=== PATIENT | female | born 1985 | race African-American/Black ===

== ENCOUNTER 2016-09-17 13:36 | Emergency (ER) | payer MEDICAID ==
[2016-09-17 13:43] VITALS: RESP 16; O2SAT 97
--- NOTE | 2016-09-17 15:10 | EDPHY ---
H & P Stated Complaint: DOMINGO for 30 mins- had vision issues prior to headache. Time Seen by Provider: 09/17/16 15:02 - Personal History LMP (Females 10-55): 15-21 Days Ago Current Tetanus/Diphtheria Vaccine: Yes Tetanus Vaccine Date: 05/23/2015 - Medical/Surgical History Hx Asthma: No Hx Chronic Respiratory Disease: No Hx Diabetes: No Hx Cardiac Disease: No Hx Renal Disease: No Hx Cirrhosis: No Hx Alcoholism: No Hx HIV/AIDS: No Hx Splenectomy or Spleen Trauma: No Other PMH: PMH:none. PSH:none - Social History Smoking Status: Never smoked Constitutional: Initial Vital Signs Temperature (C) 36.4 C 09/17/16 13:39 Heart Rate 78 09/17/16 13:39 Respiratory Rate 16 09/17/16 13:39 Blood Pressure 108/61 09/17/16 13:39 O2 Sat (%) 97 09/17/16 13:39 O2 Delivery Mode Room Air Allergies/Adverse Reactions: No Known Allergies Allergy (Verified 09/17/16 13:43) Home Medications: Medication Instructions Recorded NK [No Known Home Meds] 09/17/16 Medical Decision Making ED Course/Re-evaluation: CHIEF COMPLAINT: Headache HISTORY OF PRESENT ILLNESS: This patient is a 31 year old female who presents to the Emergency Department complaining of an acute headache beginning this morning. When she awoke, she experienced acute vision loss in her left eye lasting for approximately 30 minutes. When her vision returned to normal, she experienced a moderate headache localized to the right side of her forehead and persisting to the present. Her pain has improved slightly with Advil. She reports a similar headache back in 2003; she was seen by a physician at that time but was unsure if she was diagnosed with migraines at that time. Denies any pertinent medical history. REVIEW OF SYSTEMS: A 10 point review of systems was performed and is negative with the exception of the elements mentioned in the history of present illness. PHYSICAL EXAM: General Appearance: Alert, well hydrated, appropriate, and non-toxic appearing. Head: Atraumatic without scalp tenderness or obvious injury Eyes: Pupils equal, round, reactive to light and accommodation, EOMI, no trauma , no injection. Ears: Clear bilaterally, no perforation, normal landmarks Nose: Atraumatic, no rhinorrhea, clear. Throat: There is no erythema or exudates, no lesions, normal tonsils, mucus membranes moist. Neck: Supple, 2+ carotid upstroke, non-tender, no lymphadenopathy. Respiratory: No retractions, no distress, no wheezes, and no accessory muscle use. Lungs are clear to auscultation bilaterally. Cardiovascular: Regular rate and rhythm, no murmurs, rubs, or gallops. Bilateral carotid, radial, dorsalis pedis, and posterior tibial pulses intact. Good capillary refill all extremities. Gastrointestinal: Abdomen is soft, non-tender, non-distended, no masses, no rebound, no guarding, no peritoneal signs. Musculoskeletal: Normal active ROM of all extremities, atraumatic. Neurological: Alert, appropriate, and interactive. The patient has normal DTRs and non-focal cranial nerves, motor, sensory, and cerebellar exam. Skin: No rashes, good turgor, no nodules on palpation. PAST MEDICAL HISTORY: Denies. PAST SURGICAL HISTORY: Denies. SOCIAL HISTORY: From [place] originally, has lived in the for 16 years. DIFFERENTIAL DIAGNOSIS: The differential diagnosis for the patient's headache included but was not limited to subarachnoid hemorrhage, migraine headache, tension headache and infectious causes such as meningitis, pharyngitis and sinusitis. MEDICAL DECISION MAKING: This 31 year old female presents to the Emergency Department with an acute headache preceded by visual aura beginning this morning. She does have a history of headaches and reports a similar episode previously but is unsure if she was diagnosed with migraine headaches at that time. Her exam is benign. I considered etiologies relating to the patient's country of origin but given that she has lived in the for 16 years, my suspicion is low for any of these. Will proceed to treat using migraine protocol and reevaluate following administration of medications. IV established. 1L IV NS and 10mg IV Reglan administered. 4:00 p.m.: This patient's headache is almost completely gone. I am going to give her 30 mg of Ketoralac and 10 mg of Decadron. She has a completely normal neurologic exam still. 4:25 p.m.: The patient's headache has resolved entirely. She is eager to go home. She will be discharged home in good condition with instructions to follow- up with neurology for further evaluation of migraine headaches. She understands customary return precautions which I discussed with her prior to discharge. - Data Points Medications Given: Discontinued Medications Dexamethasone (Decadron Injection) 10 mg IVP EDNOW ONE Stop: 09/17/16 16:02 Last Admin: 09/17/16 16:10 Dose: 10 mg Ketorolac Tromethamine (Toradol) 30 mg IVP EDNOW ONE Stop: 09/17/16 16:02 Last Admin: 09/17/16 16:10 Dose: 30 mg Metoclopramide HCl (Reglan Injection) 10 mg IVP EDNOW ONE Stop: 09/17/16 15:21 Last Admin: 09/17/16 15:30 Dose: 10 mg Departure - Departure Disposition: Home, Routine, Self-Care Clinical Impression: Migraine Qualifiers: Migraine type: with aura Status migrainosus presence: without status migrainosus Intractability: not intractable Qualified Code(s): G43.109 - Migraine with aura, not intractable, without status migrainosus Condition: Good Instructions: Migraine Headache (ED) Additional Instructions: 1. Alternate Tylenol and Ibuprofen every 6 hours as needed to treat your headache. 2. Follow-up with a neurologist if your headaches continue. We have referred you to Dr. Hal Rabago. 3. Return to the Emergency Department if you experience worsening headache, changes to your vision, difficulty speaking, weakness, numbness, or other serious concerns. Referrals: Hal Rabago DO [Doctor of Osteopathy] - As per Instructions
[2016-09-17] MEDS ORDERED: METOCLOPRAMIDE 10 MG/2 ML VIAL IVP ONE (15:20)
[2016-09-17] MEDS ORDERED: DEXAMETHASONE 10 MG/ML VIAL IVP ONE (16:01)
[2016-09-17] MEDS ORDERED: KETOROLAC 30 MG/1 ML SDV IVP ONE (16:01)
[2016-09-17 16:42] VITALS: BP 98/67; PULSE 69; TEMP 98.2
== END 2016-09-17 16:41 | disposition home or self-care (01) ==
DX: G43.109 Migraine with aura, not intractable, without status migrainosus (principal)
CPT/HCPCS: 96374; J1885; J2765

== ENCOUNTER 2017-07-09 12:37 | Emergency (ER) | payer MEDICAID ==
[2017-07-09 12:52] VITALS: RESP 18
[2017-07-09] MEDS ORDERED: ACETAMINOPHEN 500 MG TAB PO ONE (13:18)
--- NOTE | 2017-07-09 13:58 | EDPHY ---
H & P Stated Complaint: cough 3 days Time Seen by Provider: 07/09/17 13:06 HPI/ROS: Chief complaint: Cold symptoms History of present illness: This is a 32-year-old female who presents to the emergency department for cold symptoms. She has been sick for the last 3-4 days. She reports fevers, nasal congestion, nonproductive cough, generalized malaise. She denies respiratory distress or rash. Other family member sick with similar symptoms. Review of systems: A 10 point review of systems was obtained and other than described above was negative - Personal History LMP (Females 10-55): 8-14 Days Ago Tetanus Vaccine Date: 05/23/2015 - Medical/Surgical History Hx Asthma: No Hx Chronic Respiratory Disease: No Hx Diabetes: No Hx Cardiac Disease: No Hx Renal Disease: No Hx Cirrhosis: No Hx Alcoholism: No Hx HIV/AIDS: No Hx Splenectomy or Spleen Trauma: No Other PMH: PMH:none. PSH:none - Social History Smoking Status: Never smoked - Physical Exam Exam: General Appearance: Alert, nontoxic. Eyes: Pupils equal and round no pallor or injection. ENT, Mouth: Tympanic membranes, external auditory canals, external ears and surrounding soft tissue including over the mastoids are unremarkable. Nasopharynx is injected. There is clear rhinorrhea. Oropharynx is injected. There is no edema. There is no exudate. There is no asymmetry. The uvula is midline. No elevation of the tongue. There is no hoarseness, no drooling, no trismus, no stridor. Respiratory: There are no retractions, lungs are clear to auscultation. Cardiovascular: Regular rate and rhythm. Gastrointestinal: Abdomen is soft and non tender, no masses, bowel sounds normal. Neurological: Alert and oriented x4. Strength and sensation intact and symmetrical. No meningismus. Skin: Warm and dry, no rashes. Musculoskeletal: Neck is supple non tender. Extremities are symmetrical, full range of motion. Psychiatric: Patient is oriented X 3, there is no agitation. Constitutional: Initial Vital Signs Temperature (C) 38.5 C H 07/09/17 12:40 Heart Rate 103 H 07/09/17 12:40 Respiratory Rate 18 07/09/17 12:40 Blood Pressure 103/57 L 07/09/17 12:40 O2 Sat (%) 97 07/09/17 12:40 O2 Delivery Mode Room Air Allergies/Adverse Reactions: No Known Allergies Allergy (Verified 09/17/16 13:43) Home Medications: Medication Instructions Recorded NK [No Known Home Meds] 09/17/16 Medical Decision Making ED Course/Re-evaluation: Patient seen under the supervision of my secondary supervising physician Dr. Emil Jauregui. Patient presents to the emergency department for cold symptoms. She is nontoxic. Afebrile and vital signs stable. She has a rather benign physical exam. I believe this is likely a viral syndrome. Antibiotics not indicated at this time. Patient will be discharged home. Symptomatic care is discussed. She is to follow up with a primary care doctor for recheck. Return precautions are given. Differential Diagnosis: Included but not limited to influenza, pneumonia, bronchitis, URI - Data Points Medications Given: Discontinued Medications Acetaminophen (Tylenol) 1,000 mg PO EDNOW ONE Stop: 07/09/17 13:19 Last Admin: 07/09/17 13:23 Dose: 1,000 mg Departure - Departure Disposition: Home, Routine, Self-Care Clinical Impression: Viral syndrome Condition: Good Instructions: Viral Syndrome (ED) Additional Instructions: Follow-up with a primary care doctor this week for a recheck Drink plenty of fluids to stay hydrated and get plenty of rest Use [id number] ibuprofen or Tylenol as directed as needed for fever and pain If symptoms worsen or new symptoms develop return to the emergency room for recheck Referrals: Jesenia Almonte [Primary Care Provider] - As per Instructions
[2017-07-09 14:44] VITALS: BP 93/63; PULSE 97; TEMP 100.4; O2SAT 98
== END 2017-07-09 14:43 | disposition home or self-care (01) ==
DX: B34.9 Viral infection, unspecified (principal)

== ENCOUNTER 2017-09-02 23:31 | Emergency (ER) | payer MEDICAID ==
[2017-09-02 23:38] VITALS: O2SAT 96
--- NOTE | 2017-09-03 00:53 | EDPHY ---
H & P Stated Complaint: left ear pain Time Seen by Provider: 09/02/17 23:34 HPI/ROS: Chief Complaint: Ear pain HPI: 32 year old woman complaining of left ear pain. Patient has been dealing with pain for the last several weeks. She was started on Polysporin otic. She has not been having any discharge. She is not better drops in today is complaining of pain at this time. No discharge. Some decreasing hearing loss. No fevers or chills. ROS: 10 point Review of Systems is negative except as noted in the HPI. PMH: Denies Social History: No smoking, no alcohol, no recreational drug use Family History: non-contributory Physical Exam: Gen: Awake, Alert, No Distress HEENT: Ears: Left ear TM is normal. There is no material in the canal. No erythema or bulging. Some mild sclerotic changes of the tympanic membrane. Nose: no rhinorrhea Eyes: PERRLA, EOMI Mouth: Moist mucosa Neck: Supple, no JVD Chest: nontender, lungs clear to auscultation Heart: S1, S2 normal, no murmur Abd: Soft, non-tender, no guarding Back: no CVA tenderness, no midline tenderness Ext: no edema, non-tender Skin: no rash Neuro: CN II-XII intact, Sensation grossly intact, Strength 5/5 in bilateral upper and lower extremities - Personal History LMP (Females 10-55): 15-21 Days Ago Current Tetanus/Diphtheria Vaccine: Yes Current Tetanus Diphtheria and Acellular Pertussis (TDAP): Yes Tetanus Vaccine Date: 05/23/2015 - Medical/Surgical History Hx Asthma: No Hx Chronic Respiratory Disease: No Hx Diabetes: No Hx Cardiac Disease: No Hx Renal Disease: No Hx Cirrhosis: No Hx Alcoholism: No Hx HIV/AIDS: No Hx Splenectomy or Spleen Trauma: No Other PMH: PMH:none. PSH:none - Social History Smoking Status: Never smoked Constitutional: Initial Vital Signs Temperature (C) 37 C 09/02/17 23:34 Heart Rate 77 09/02/17 23:34 Respiratory Rate 16 09/02/17 23:34 Blood Pressure 104/67 09/02/17 23:34 O2 Sat (%) 96 09/02/17 23:34 O2 Delivery Mode Room Air Allergies/Adverse Reactions: No Known Allergies Allergy (Verified 09/17/16 13:43) Home Medications: Medication Instructions Recorded NK [No Known Home Meds] 09/17/16 Medical Decision Making ED Course/Re-evaluation: Patient has no obvious otitis media or externa. I have recommended over-the- counter pain medications. Follow up with her physician as an outpatient. Departure - Departure Disposition: Home, Routine, Self-Care Clinical Impression: Ear pain Condition: Good Instructions: Earache (ED) Additional Instructions: Alternate acetaminophen (1000 mg) with ibuprofen (400 mg) every 4 hours as needed for pain. Follow up with her physician in 3-4 days if symptoms are not improving. Referrals: Jesenia Almonte [Primary Care Provider] - As per Instructions
[2017-09-03 01:05] VITALS: BP 110/77; PULSE 64; RESP 18; TEMP 98.8
== END 2017-09-03 01:04 | disposition home or self-care (01) ==
DX: H92.02 Otalgia, left ear (principal)

== ENCOUNTER 2017-11-08 15:20 | Emergency (ER) | payer MEDICAID ==
[2017-11-08 15:40] VITALS: BP 123/61
--- NOTE | 2017-11-08 16:17 | EDPHY ---
H & P Stated Complaint: EAR PAIN, SORE THROAT Time Seen by Provider: 11/08/17 16:16 HPI/ROS: HPI: This is a 32-year-old female who presents with Chief Complaint: Ear pain going into throat Location: Bilateral ear Quality: Plugging Duration: 7-10 days Signs and Symptoms: no fever, no nausea, no vomiting, no diarrhea, no urinary symptoms, no chest pain, no shortness of breath, no wheezing, no cough, no sore throat, no neck stiffness, no joint pain, no swollen glands, no ear pain, no rash Timing: Daily Severity: [id number] Context: Patient presents with complaints of bilateral ear fullness and plugging sensation radiates down into her lateral neck for the last 7-10 days. She reports that she was diagnosed with seasonal allergies as well as a sinus infection 3 days ago at the [facility]. She has not been using the nasal spray that they gave for. She took 1 dose of Augmentin and it made her nauseous and jittery so she stopped using it. She complains of continued sinus pressure with green nasal drainage and congestion. LMP 1-7 days ago Modifying Factors: See above Comment: ROS: see HPI Constitutional: + fever, no chills, no weight loss Eyes: No blurred vision Respiratory: No shortness of breath, no cough Cardiovascular: No chest pain, no palpitations Gastrointestinal: No nausea, no vomiting, no diarrhea, no hematemesis, no blood in stool Genitourinary: No dysuria, no blood in urine Extremities: No myalgias, no edema Neurologic: No weakness, no numbness Skin: No rashes, no petechiae Hematologic: No bruising, no bleeding MEDICAL/SURGICAL/SOCIAL HISTORY: Medical history: Seasonal allergies Surgical history: Denies Social history: Family history noncontributory. CONSTITUTIONAL: Extremely well-appearing adult black female, awake and alert, no obvious distress HEENT: Atraumatic and normocephalic, PERRL, EOMI. Nares patent; no rhinorrhea; no nasal mucosal edema. Tympanic membranes clear. Oropharynx clear, no exudate and moist pink mucosa. Reproducible frontal and maxillary sinus tenderness. Airway patent. No lymphadenopathy. No meningismus. Cardiovascular: Normal S1/S2, regular rate, regular rhythm, without murmur rub or gallop. PULMONARY/CHEST: Symmetrical and nontender. Clear to auscultation bilaterally. Good air movement. No accessory muscle usage. ABDOMEN: Soft, nondistended, nontender, no rebound, no guarding, no peritoneal signs, no masses or organomegaly. No CVAT. EXTREMITIES: 2/2 pulses, strength 5/5, no deformities, no clubbing, no cyanosis or edema. NEUROLOGICAL: no focal neuro deficits. GCS 15. SKIN: Warm and dry, no erythema. no rash. Good capillary refill. Source: Patient Exam Limitations: No limitations - Personal History LMP (Females 10-55): 1-7 Days Ago Current Tetanus/Diphtheria Vaccine: Yes Current Tetanus Diphtheria and Acellular Pertussis (TDAP): Yes Tetanus Vaccine Date: 05/23/2015 - Medical/Surgical History Hx Asthma: No Hx Chronic Respiratory Disease: No Hx Diabetes: No Hx Cardiac Disease: No Hx Renal Disease: No Hx Cirrhosis: No Hx Alcoholism: No Hx HIV/AIDS: No Hx Splenectomy or Spleen Trauma: No Other PMH: PMH:none. PSH:none - Social History Smoking Status: Never smoked Constitutional: Initial Vital Signs Temperature (C) 37.8 C 11/08/17 15:36 Heart Rate 90 11/08/17 15:36 Respiratory Rate 15 11/08/17 15:36 Blood Pressure 123/61 H 11/08/17 15:36 O2 Sat (%) 97 11/08/17 15:36 O2 Delivery Mode Room Air Allergies/Adverse Reactions: No Known Allergies Allergy (Verified 09/17/16 13:43) Home Medications: Medication Instructions Recorded Doxycycline Hyclate 100 mg PO BID #14 tab 11/08/17 Loratadine [Claritin 10 mg] 10 mg PO DAILY #14 tablet 11/08/17 Medical Decision Making ED Course/Re-evaluation: Vital signs reviewed upon arrival in stable. No signs of otitis media/meningitis/sepsis Advised to start [id number] antihistamines and prescription given for same. Stopped Augmentin and started doxycycline. Advised to continue nasal steroid spray. This patient was seen under the supervision of my secondary supervising physician. I evaluated care for this patient independently. Differential Diagnosis: Differential diagnosis includes but is not limited to allergic rhinitis, bacterial sinusitis, upper respiratory infection, eustachian tube dysfunction, otitis media. Departure - Departure Disposition: Home, Routine, Self-Care Clinical Impression: Sinusitis nasal Qualifiers: Sinusitis location: maxillary Chronicity: acute Recurrence: non-recurrent Qualified Code(s): J01.00 - Acute maxillary sinusitis, unspecified Eustachian tube dysfunction Qualifiers: Laterality: bilateral Qualified Code(s): H69.83 - Other specified disorders of Eustachian tube, bilateral Condition: Good Instructions: Sinusitis (ED) Additional Instructions: Stop taking Augmentin. Start taking doxycycline 100 mg twice daily x7 days for her sinus infection. Continue to use your nasal spray daily. Take daily as needed for seasonal allergies. Take Tylenol 650 mg every 4 hr and/or ibuprofen 600 mg every 8 hr as needed for pain, headache. Referrals: Jesenia Almonte [Primary Care Provider] - 5-7 days, if not improved Prescriptions: Doxycycline Hyclate 100 mg PO BID #14 tab Loratadine [Claritin 10 mg] 10 mg PO DAILY #14 tablet
== END 2017-11-08 16:30 | disposition home or self-care (01) ==
DX: J01.00 Acute maxillary sinusitis, unspecified (principal); H69.83 Other specified disorders of Eustachian tube, bilateral

== ENCOUNTER 2018-01-24 10:18 | Emergency (ER) | payer MEDICAID, OTHER ==
--- NOTE | 2018-01-24 10:44 | EDPHY ---
General Time Seen by Provider: 01/24/18 10:36 Narrative: CHIEF COMPLAINT: "Something stuck in my throat" HISTORY OF PRESENT ILLNESS: Patient presents with complaints of "there something stuck in my throat." She states that she felt like something is been in her throat for 5 days. She states that she can feel it when she reaches back there. She has no pain. No difficulty breathing or swallowing. She has been eating and drinking with no difficulty. No injury. No headache, neck pain, fever or painful opening or closing the mouth. She has seen her primary care physician yesterday who prescribed her antacid and loratadine with no test performed. No other associated complaints or modifying factors. REVIEW OF SYSTEMS: Ten systems reviewed and are negative unless otherwise noted in the HPI PCP: [facility] SPECIALISTS: None PAST MEDICAL HISTORY: Denies any medical history PAST SURGICAL HISTORY: Denies surgical history SOCIAL HISTORY: Nonsmoker. Lives independently with her children. FAMILY HISTORY: Noncontributory EXAMINATION General Appearance: Alert, no distress Head: normocephalic, atraumatic Eyes: Pupils equal and round, no conjunctival pallor or injection ENT, Mouth: Mucous membranes moist. Uvula is midline. The airway is widely patent. I do not appreciate any foreign body, erythema, edema or drooling. Neck: Normal inspection, supple, non-tender. Painless range of motion all planes without meningismus or rigidity. Respiratory: Lungs are clear with no retractions or distress. Cardiovascular: Regular rate with good signs of perfusion Gastrointestinal: Abdomen is soft and nontender Neurological: A&O, nonfocal, normal gait Skin: Warm and dry, no rash Extremities: Nontender, no pedal edema DIFFERENTIAL DIAGNOSES: Including but not limited to globus sensation, pharyngitis, esophagitis, reflux , epiglottitis, uvulitis MDM: 10:40 a.m. Foreign body sensation in the posterior pharynx the patient states she can feel. I do not appreciate anything in the posterior pharynx other than the uvula that is somewhat longer than typical. I do not appreciate uvulitis or any evidence of epiglottitis. She is tolerating liquids and solids for 5 days without any drooling, stridor or difficulty breathing. I have ordered x-ray of the neck soft tissue. 11:00 a.m. Notified by radiologist Dr. Brandon. There is abnormal appearance of the left apex of the lung. He recommends a dedicated two view chest to delineate. 12:24 p.m. Case discussed with radiologist Dr. Brandon. Chest x-ray reveals an abnormal appearance of the left apex of the lung, but this has been compared to previous x-ray without any change. Furthermore the patient does not have any fever, cough, night sweats or hemoptysis. 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 She has no symptoms at all from this. She does still have a feeling of abnormal sensation of the back of throat. I do not appreciate any finding. She is tolerating liquids and solids for 5 days without any evidence of foreign body. We discussed discharge home with follow up with primary care physician to discuss an Ear Nose and Throat referral should she have ongoing symptoms. We discussed the possibility of globus versus is discomfort from uvula. There is no evidence of pharyngitis, uvulitis or epiglottitis. She is discharged home stable condition. SUPERVISION: This patient was independently evaluated without direct involvement of or examination by the attending physician. - Diagnostics Imaging Results: Imaging Impressions Soft Tissue Neck X-Ray 01/24/18 10:44 Impression: 1. Unremarkable appearance of the soft tissues of the neck. 2. Spiculated density left upper lobe with apical pleural and mediastinal thickening. Tuberculosis versus malignant etiology. Results discussed with Joseph Rae PA-C, at 11:00 AM. Chest X-Ray 01/24/18 10:59 Impression: Stable chest x-ray. Cicatricial atelectasis and scarring left upper lobe with pleural thickening compatible with prior tuberculosis.. - History Smoking Status: Never smoked - Objective Vital Signs: Initial Vital Signs Temperature (C) 98.1 F 01/24/18 10:21 Heart Rate 79 01/24/18 10:21 Respiratory Rate 18 01/24/18 10:21 Blood Pressure 107/69 01/24/18 10:21 O2 Sat (%) 95 01/24/18 10:21 O2 Delivery Mode Room Air Allergies/Adverse Reactions: No Known Allergies Allergy (Verified 01/24/18 10:21) Home Medications: Medication Instructions Recorded Doxycycline Hyclate 100 mg PO BID #14 tab 11/08/17 Loratadine [Claritin 10 mg] 10 mg PO DAILY #14 tablet 11/08/17 Departure - Departure Disposition: Home, Routine, Self-Care Clinical Impression: Globus pharyngeus Condition: Good Instructions: Foreign Body in Pharynx (ED) Additional Instructions: 1. Contact primary care physician to follow-up early next week 2. You had a chest x-ray here the reveals chronic, stable appearance of the left upper lobe changes consistent with previous history. You do not need to follow-up on this at this time 3. Return here for any difficulty swallowing, breathing or any drooling uncontrollably Referrals: Jesenia Almonte [Primary Care Provider] - As per Instructions
[2018-01-24 12:33] VITALS: BP 110/67
== END 2018-01-24 12:33 | disposition home or self-care (01) ==
DX: F45.8 Other somatoform disorders (principal)

== ENCOUNTER 2018-11-02 01:05 | Emergency (ER) | payer MEDICAID, OTHER ==
[2018-11-02] MEDS ORDERED: MAG HYDROX/AL HYDROX/SIMETH 30 ML UDCUP PO ONE (01:40)
[2018-11-02] MEDS ORDERED: HYOSCYAMINE SULFATE 0.125 MG TAB PO ONE (01:40)
[2018-11-02] MEDS ORDERED: LIDOCAINE 2% VISCOUS 15 ML UDCUP PO ONE (01:40)
--- NOTE | 2018-11-02 01:53 | EDPHY ---
H & P Stated Complaint: cough, congestion Time Seen by Provider: 11/02/18 01:20 HPI/ROS: HPI The patient presents with cough, chest pain, which began tonight. She does have a history of GERD. She ate some great fruit before going to bed. She awoke about an hour prior to arrival with a burning pain throughout her chest associated with mild nausea. This did not subside so she comes into the emergency department. She says her allergic rhinitis has been quite severe this season and has been using an antihistamine as well as an eye drop. She has a mild cough as well. REVIEW OF SYSTEMS 10 systems were reviewed and negative with the exception of the elements mentioned in the history of present illness. PMHx: Allergic rhinitis, prior pulmonary tuberculosis Soc Hx: Originally from [facility], nonsmoker PHYSICAL General Appearance: Alert, no distress Eyes: Pupils equal and round no pallor or injection ENT, Mouth: Mucous membranes moist Respiratory: There are no retractions, lungs are clear to auscultation Cardiovascular: Regular rate and rhythm Gastrointestinal: Abdomen is soft and with mild epigastric tenderness, no masses, bowel sounds normal Neurological: A&O, moves all extremities Skin: Warm and dry, no rashes Musculoskeletal: Neck is supple non tender Extremities: symmetrical, full range of motion Psychiatric: Patient is oriented X 3, there is no agitation Source: Patient Exam Limitations: No limitations - Personal History LMP (Females 10-55): Now Current Tetanus/Diphtheria Vaccine: Yes Current Tetanus Diphtheria and Acellular Pertussis (TDAP): Yes Tetanus Vaccine Date: 05/23/2015 - Medical/Surgical History Hx Asthma: No Hx Chronic Respiratory Disease: No Hx Diabetes: No Hx Cardiac Disease: No Hx Renal Disease: No Hx Cirrhosis: No Hx Alcoholism: No Hx HIV/AIDS: No Hx Splenectomy or Spleen Trauma: No Other PMH: PMH:none. PSH:none - Social History Smoking Status: Never smoked Constitutional: Initial Vital Signs Temperature (C) 36.7 C 11/02/18 01:09 Heart Rate 85 11/02/18 01:09 Respiratory Rate 16 11/02/18 01:09 Blood Pressure 114/80 11/02/18 01:09 O2 Sat (%) 99 11/02/18 01:09 O2 Delivery Mode Room Air Allergies/Adverse Reactions: No Known Allergies Allergy (Verified 01/24/18 10:21) Home Medications: Medication Instructions Recorded Doxycycline Hyclate 100 mg PO BID #14 tab 11/08/17 Loratadine [Claritin 10 mg] 10 mg PO DAILY #14 tablet 11/08/17 Medical Decision Making - Diagnostics EKG Interpretation: EKG: Complete interpretation has been separately recorded in the [facility] archive. Summary impression: Normal sinus rhythm Imaging Results: Imaging Impressions Chest X-Ray 11/02/18 01:39 Impression: 1. No acute process. 2. Bilateral apical pleuroparenchymal scarring, worst in the left lung apex, has not significantly changed since January 2018. Chest x-ray two views shows scarring in the left upper lung field similar to prior chest x-ray, interpreted by me, radiology interpretation is pending. Imaging: I viewed and interpreted images myself Differential Diagnosis: 33-year-old female with history of GERD, and seasonal allergies with allergic rhinitis presents with burning chest pain which awoke her from sleep tonight. Here, she is generally well-appearing. She has mild epigastric tenderness. In the emergency department, EKG and chest x-ray were performed and these were unremarkable. I suspect patient's symptoms are related to GERD. She did improve with a GI cocktail here. I have encouraged her to add on famotidine or Maalox in addition to her daily PPI which she is taking. Other differential diagnoses considered include postnasal drip with chest pain and cough, ACS, pneumothorax. - Data Points Medications Given: Discontinued Medications Al Hydroxide/Mg Hydroxide (Maalox Susp) 30 ml PO ONCE ONE Stop: 11/02/18 01:41 Last Admin: 11/02/18 01:48 Dose: 30 ml Hyoscyamine Sulfate (Levsin, Hyomax-Sl) 0.25 mg PO ONCE ONE Stop: 11/02/18 01:41 Last Admin: 11/02/18 01:48 Dose: 0.25 mg Lidocaine (Lidocaine 2% Viscous) 15 ml PO ONCE ONE Stop: 11/02/18 01:41 Last Admin: 11/02/18 01:48 Dose: 15 ml Departure - Departure Disposition: Home, Routine, Self-Care Clinical Impression: GERD (gastroesophageal reflux disease) Qualifiers: Esophagitis presence: esophagitis presence not specified Qualified Code(s): K21.9 - Gastro-esophageal reflux disease without esophagitis Chest pain Qualifiers: Chest pain type: unspecified Qualified Code(s): R07.9 - Chest pain, unspecified Condition: Good Instructions: Diet for Stomach Ulcers and Gastritis (ED), Gastroesophageal Reflux Disease (ED) Additional Instructions: Please return to the emergency department if your worse in any way. I recommend you take famotidine 20 mg is every 12 hr as needed. I recommend you take Maalox as well until your symptoms improved. Both of these medications are available [id number]. Referrals: Jesenia Almonte [Primary Care Provider] - As per Instructions
[2018-11-02 03:34] VITALS: BP 92/59
--- NOTE | 2018-11-03 06:55 | CPEKG ---
Test Reason : OPEN Blood Pressure : / mmHG Vent. Rate : 064 BPM Atrial Rate : 063 BPM P-R Int : 138 ms QRS Dur : 088 ms QT Int : 400 ms P-R-T Axes : -33 068 043 degrees QTc Int : 413 ms Sinus rhythm Confirmed by Fela Dye ([id number]) on 11/03/2018 6:55:19 AM Referred By: Fela Dye Confirmed By:Fela Dye
== END 2018-11-02 03:33 | disposition home or self-care (01) ==
DX: K21.9 Gastro-esophageal reflux disease without esophagitis (principal); R07.9 Chest pain, unspecified

== ENCOUNTER 2018-11-29 11:45 | Emergency (ER) | payer MEDICAID ==
--- NOTE | 2018-11-29 11:47 | EDPHY ---
H & P Time Seen by Provider: 11/29/18 11:47 - Personal History Tetanus Vaccine Date: 05/23/2015 - Medical/Surgical History Hx Asthma: No Hx Chronic Respiratory Disease: No Hx Diabetes: No Hx Cardiac Disease: No Hx Renal Disease: No Hx Cirrhosis: No Hx Alcoholism: No Hx HIV/AIDS: No Hx Splenectomy or Spleen Trauma: No Other PMH: PMH:none. PSH:none - Social History Smoking Status: Never smoked Constitutional: Initial Vital Signs Temperature (C) 36.4 C 11/29/18 11:52 Heart Rate 78 11/29/18 11:52 Respiratory Rate 18 11/29/18 11:52 Blood Pressure 109/63 11/29/18 11:52 O2 Sat (%) 98 11/29/18 11:52 O2 Delivery Mode Room Air Allergies/Adverse Reactions: No Known Allergies Allergy (Verified 11/29/18 11:52) Home Medications: Medication Instructions Recorded Doxycycline Hyclate 100 mg PO BID #14 tab 11/08/17 Loratadine [Claritin 10 mg] 10 mg PO DAILY #14 tablet 11/08/17 Medical Decision Making ED Course/Re-evaluation: CHIEF COMPLAINT: Headache HISTORY OF PRESENT ILLNESS: The patient is a 33 y/o female complaining of a headache and blurry vision. She initially developed blurry vision and then developed a headache behind her left eye. The headache is now waxing and waning. Her symptoms today are similar to prior headaches. No fever, body aches, lightheadedness, chest pain, heart palpitations, shortness of breath, cough, abdominal pain, urinary or bowel complaints, numbness, paresthesias. REVIEW OF SYSTEMS: A comprehensive 10 system review of systems is otherwise negative aside from elements mentioned in the history of present illness and medical decision making. PHYSICAL EXAM: HR, BP, O2 Sat, RR. Temp noted General Appearance: Alert, well hydrated, appropriate, and non-toxic appearing. Head: Atraumatic without scalp tenderness or obvious injury Eyes: Pupils equal, round, reactive to light and accommodation, EOMI, no trauma , no injection. Ears: Clear bilaterally, no perforation, normal landmarks Nose: Atraumatic, no rhinorrhea, clear. Throat: There is no erythema or exudates, no lesions, normal tonsils, mucus membranes moist. Neck: Supple, 2+ carotid upstroke, nontender, no lymphadenopathy. Respiratory: No retractions, no distress, no wheezes, and no accessory muscle use. Lungs are clear to auscultation bilaterally. Cardiovascular: Regular rate and rhythm, no murmurs, rubs, or gallops. Bilateral carotid, radial, dorsalis pedis, and posterior tibial pulses intact. Good capillary refill all extremities. Gastrointestinal: Abdomen is soft, nontender, non-distended, no masses, no rebound, no guarding, no peritoneal signs. Musculoskeletal: Normal active ROM of all extremities, atraumatic. Neurological: Alert, appropriate, and interactive. The patient has normal DTRs and non-focal cranial nerves, motor, sensory, and cerebellar exam. Skin: No rashes, good turgor, no nodules on palpation. Past medical history: Denies Past surgical history: Denies Family history: Denies Social history: Children at bedside, originally from [place], DIAGNOSTICS/PROCEDURES/CRITICAL CARE TIME: Not indicated. DIFFERENTIAL DIAGNOSIS: The differential diagnosis for the patient's headache included but was not limited to subarachnoid hemorrhage, migraine headache, tension headache and infectious causes such as meningitis, pharyngitis and sinusitis. MEDICAL DECISION MAKING: The patient is a 33 y/o female complaining of a waxing and waning headache and blurry vision. She initially developed blurry vision and then developed a headache behind her left eye. Patient most likely is having a migraine headache. Migraine cocktail administered. Headache is completely resolved at 12:30 p.m.. We will discharge the patient with neurologic follow-up. Return precautions provided; patient is comfortable with this plan. - Data Points Medications Given: Discontinued Medications Sodium Chloride (Ns) 1,000 mls @ 0 mls/hr IV ONCE ONE; Wide Open PRN Reason: Protocol Stop: 11/29/18 12:01 Last Admin: 11/29/18 12:01 Dose: 1,000 mls Ketorolac Tromethamine (Toradol) 30 mg IVP EDNOW ONE Stop: 11/29/18 11:53 Last Admin: 11/29/18 12:02 Dose: 30 mg Methylprednisolone Sodium Succinate (Solu-Medrol) 125 mg IVP EDNOW ONE Stop: 11/29/18 11:53 Last Admin: 11/29/18 12:02 Dose: 125 mg Metoclopramide HCl (Reglan Injection) 10 mg IVP EDNOW ONE Stop: 11/29/18 11:53 Last Admin: 11/29/18 12:02 Dose: 10 mg Departure - Departure Disposition: Home, Routine, Self-Care Clinical Impression: Migraine Qualifiers: Migraine type: other Status migrainosus presence: without status migrainosus Intractability: not intractable Qualified Code(s): G43.809 - Other migraine, not intractable, without status migrainosus Condition: Fair Instructions: Migraine Headache (ED) Additional Instructions: 1. Follow-up with your primary care physician or neurologist within 72 hours. 2. Return to the emergency department immediately for recurrence of headache, nausea, vomiting, numbness, weakness, neck pain, fever or other concerns. 3. Use Tylenol and/or ibuprofen as directed. Referrals: Lamberto Scott MD [Medical Doctor] - As per Instructions Report Scribed for: Tito Person Report Scribed by: Dottie Luque Date of Report: 11/29/18 Time of Report: 11:49
[2018-11-29] MEDS ORDERED: KETOROLAC 30 MG/1 ML SDV IVP ONE (11:52)
[2018-11-29] MEDS ORDERED: methylPREDNISolone SOD SUCC 125 MG/2 ML VIAL IVP ONE (11:52)
[2018-11-29] MEDS ORDERED: METOCLOPRAMIDE 10 MG/2 ML VIAL IVP ONE (11:52)
[2018-11-29 11:54] VITALS: BP 109/63
[2018-11-29] MEDS ORDERED: NS 1,000 ML IV ONE (12:00)
== END 2018-11-29 12:38 | disposition home or self-care (01) ==
DX: G43.809 Other migraine, not intractable, without status migrainosus (principal); E86.9 Volume depletion, unspecified
CPT/HCPCS: 96374; J1885; J2765; J2930